=== PATIENT | male | born 1985 | race Caucasian/White ===

== ENCOUNTER 2021-01-16 17:13 | Outpatient (CLI) | payer OTHER, SELFPAY ==
--- NOTE | ~2021-01-16 | XR_ITS ---
XR lumbar spine 2-3V 01/16/2021 17:30 Indication: Low back pain for one month. Procedure: 3 views lumbar spine Comparison: No prior studies for comparison. Findings: There is mild disc narrowing at L5-S1. Vertebral body heights are maintained. No other sign ificant disc narrowing. No fracture or traumatic malalignment. Pedicles intact. Sacral foramen are sy mmetric. No evidence for spondylolisthesis. Impression: 1: Mild lumbar spondylosis. Reviewed, dictated and finalized at location A. [employer] Impression: 1: Mild lumbar spondylosis.
== END 2021-01-16 17:14 | disposition home or self-care (01) ==
LOC: ANHIMG 17:18
PROVIDERS: PCP Family Medicine; Visit Provider Family Medicine
DX: M47.896 Other spondylosis, lumbar region (principal)
CPT/HCPCS: 72100

== ENCOUNTER → 2021-06-27 08:33 | Outpatient (CLI) | payer OTHER, SELFPAY ==
--- NOTE | ~2021-06-27 | MR_ITS ---
EXAMINATION: MR lumbar spine wo con DATE: 06/27/2021 09:00 INDICATION: Low back pain and bilateral leg pain. TECHNIQUE: Magnetic resonance imaging (MRI) of the lumbar spine was performed without intravenous con trast. Sequences included sagittal T2-weighted FSE, sagittal T2-weighted FS FSE, sagittal T1-weighted FSE, and axial T2-weighted FSE. COMPARISON: Lumbar spine radiographs dated 01/16/2021 FINDINGS: Straightening of the normal lumbar lordosis. 4 mm retrolisthesis L5 on S1. 1-2 mm retrolisthesis L4 o n L5. Vertebral body heights are normal. Mild disc height loss at T12-L1, L4-L5 and L5-S1, each with associated annular fissures. Normal marrow signal. 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 The conus medullaris terminates at L2. There is normal signal in the caudal spinal cord. Pa ravertebral soft tissues are unremarkable. The following disc levels are specifically discussed: T12-L1: Annular fissure and small right paracentral disc protrusion which slightly indents the right ventral surface of the cord. There is mild left facet joint osteoarthritis. There is no neural forami nal stenosis. There is mild central canal stenosis. L1-L2: The disc does not extend beyond the endplate margin. There is mild right and minimal left face t joint osteoarthritis. There is no neural foraminal stenosis. There is no central canal stenosis. L2-L3: The disc does not extend beyond the endplate margin. There is mild bilateral facet joint osteo arthritis. There is no neural foraminal stenosis. There is no central canal stenosis. L3-L4: Disc is minimally bulging. There is mild hypertrophy of the ligamentum flavum. There is mild l eft and mild to moderate right facet joint osteoarthritis. There is mild bilateral neural foraminal s tenosis. There is mild central canal stenosis. L4-L5: Disc is mildly bulging with superimposed annular fissure and moderate sized central disc extru jose ramon with disc material extending a few millimeters cephalad and caudal to the level of the endplates . The extrusion measures 10 mm left to right and 4 mm AP. There is a separate left foraminal zone adamaris ular fissure and disc extrusion with disc material extending a few millimeters cephalad into the left neural foramen. There is minimal bilateral facet joint osteoarthritis. There is mild to moderate rig ht and moderate to severe left neural foraminal stenosis. There is severe central canal stenosis. L5-S1: Annular fissure and mild diffuse disc bulge. Small bilateral osteophytes arising posterolatera lly from the inferior endplates of L5. There is mild left and minimal right facet joint osteoarthriti s. There is moderate bilateral neural foraminal stenosis. There is mild central canal stenosis. IMPRESSION: 1. Mild lumbar spondylosis most notable for annular fissure and central disc extrusion at L4-L5 resul ting in severe central canal stenosis. Reviewed, dictated and finalized at location A. IMPRESSION: 1. Mild lumbar spondylosis most notable for annular fissure and central disc ex trusion at L4-L5 resulting in severe central canal stenosis.
== END ==
PROVIDERS: PCP Family Medicine; Visit Provider Nurse Practitioner
DX: M47.26 Other spondylosis with radiculopathy, lumbar region (principal)
CPT/HCPCS: 72148